=== PATIENT | female | born 1980 | race Caucasian/White ===

== ENCOUNTER 2017-07-31 18:04 | Outpatient (CLI) | payer BC, OTHER ==
[2017-07-31 18:53] LABS: URINE BLOOD (Dip) POC 2+ (NEGATIVE)
[2017-07-31 19:31] LABS: ADD UMIC YES; UR ASCORBIC ACID NEGATIVE (NEGATIVE); UR BACTERIA FEW /HPF (NONE SEEN); UR BILIRUBIN (Dip) NEGATIVE (NEGATIVE); UR BLOOD (Dip) 2+ mg/dL (NEGATIVE); UR CLARITY CLEAR (CLEAR); UR COLOR STRAW (YELLOW); UR GLUCOSE (Dip) NEGATIVE (NEGATIVE); UR KETONES (Dip) NEGATIVE (NEGATIVE); UR LEUKOCYTE ESTERASE (Dip) 1+ Leu/ul (NEGATIVE); UR NITRITE (Dip) NEGATIVE (NEGATIVE); UR RBC 3 /HPF (0-5); UR SPECIFIC GRAVITY (Dip) 1.003 (1.003-1.030); UR SQUAMOUS EPITHELIAL CELL FEW /HPF (FEW); UR TOTAL PROTEIN (Dip) NEGATIVE (NEGATIVE); UR UROBILINOGEN (Dip) NEGATIVE (NEGATIVE)
--- NOTE | 2017-07-31 20:29 | RADRPT ---
PROCEDURE: Obstetrical ultrasound for biophysical profile CLINICAL INDICATION: Biophysical profile. . TECHNIQUE: Obstetrical ultrasound of the uterus for biophysical profile. Transabdominal and transvaginal views are obtained. COMPARISON: None FINDINGS: Single intrauterine gestation. Presentation: Cephalic. Placenta: Anterior. No evidence of placental abruption. No evidence of placenta previa. Cervix is closed measuring 1.8 cm as visualized transvaginally. breathing movement = 2/2 tone = 2/2 motion = 2/2 SAIRA = 2/2 SAIRA = 11.2 cm heart rate: 146 beats per minute IMPRESSION: Single intrauterine gestation. Biophysical profile 03/10 Cervix is closed measuring 1.8 cm as visualized transvaginally. RPTAT: AADD .Luis Noyola MD, Date Time Electronically viewed and signed by .Luis Noyola MD, on 07/31/2017 20:29 .B/
--- NOTE | 2017-07-31 20:51 | PN ---
Triage Information Date/Time Reason for visit: DFM Weeks of Gestation 34w 4d /Para Objective Heart Rate Comments reactive Contractions: 6-10 Minutes Apart Results/Medications Results 24 hrs Laboratory Tests Test 07/31/17 18:50 07/31/17 18:55 Urine Color STRAW Urine Clarity CLEAR Urine pH 7.0 Urine Specific [place] 1.003 Urine Ketones NEGATIVE Urine Nitrite NEGATIVE Urine Bilirubin NEGATIVE Urine Urobilinogen NEGATIVE Urine Leukocyte Esterase 1+ H Urine Microscopic RBC 3 Urine Microscopic WBC 9 H Urine Squamous Epithelial Cells FEW Urine Calcium Oxalate Crystals FEW A Urine Bacteria FEW A Urine Hemoglobin 2+ H Urine Glucose NEGATIVE Urine Total Protein NEGATIVE Bedside Urine pH (LAB) 6.0 Bedside Urine Protein (LAB) Negative Bedside Urine Glucose (UA) Negative Bedside Urine Ketones (LAB) Negative Bedside Urine Blood 2+ H Bedside Urine Nitrite (LAB) Negative Bedside Urine Leukocyte Esterase (L Trace H Imaging Results BPP 03/10, SAIRA 11.2cm Disposition: Discharge Assessment/Plan 37 y/o at 34w 4d with dfm -BPP normal, NST reactive -UCs are asymptomatic -discharge home with ptl precautions -f/u with OB, patient interested in FADUMO COYLE Jul 31, 2017 20:51
--- NOTE | 2017-07-31 21:34 | TRIAGE ---
OB Triage Datetime Report Generated by CPN: 07/31/2017 21:33 Datetime: 07/31/2017 20:40 Stage of : OB Triage Datetime: 07/31/2017 20:30 Stage of : OB Triage Labor Evaluation Frequency: 6-10 Monitor Mode: External Quality: Mild Pattern: Normal: <= 5 Contractions in 10 Minutes Resting Tone [employer]: Relaxed Contraction Comments: Pt denies ucs or discomfort. Heart Rate FHR Baseline Rate: 140 Monitor Mode: External US FHR Baseline Changes: No Baseline Change Variability: Moderate 6-25 bpm Accelerations: 15X15 Decelerations: None Category: Category I Datetime: 07/31/2017 19:51 Stage of : OB Triage Monitor Mode: External US Datetime: 07/31/2017 19:39 Stage of : OB Triage Monitor Mode: External Quality: Mild Pattern: Normal: <= 5 Contractions in 10 Minutes Resting Tone [employer]: Relaxed Contraction Comments: pt denies ucs or discomfort Heart Rate FHR Baseline Rate: 145 Monitor Mode: External US FHR Baseline Changes: No Baseline Change Pain Assessment Pain Scale: 0 Pain Presence: None/Denies Pain Type: N/A Datetime: 07/31/2017 18:44 Stage of : OB Triage Maternal Assessment Level of Consciousness: Fully Conscious DTR's/Clonus: DTRs 2+; No Clonus Headache: Denies Blurred Vision: No Respiratory Effort: Unlabored; Regular Rhythm; Equal Expansion Breath Sounds, Left: Clear and Equal Breath Sounds, Right: Clear and Equal Nausea/Vomiting: Denies RUQ Epigastric Pain: Denies Facial Edema: None Temperature Route: Axillary Fall Risk Assessment History of Falling: (0) No Secondary Diagnosis: (0) No Ambulatory Aid: (0) Bedrest/Nurse Assist IV Therapy: (0) No Gait: (0) Normal/Bedrest/Immobile Mental Status: (0) Oriented to Own Ability Fall Score: 0 Fall Risk Score Definition: No Risk: No action required Labor Evaluation Frequency: 9-10 Monitor Mode: External Duration (sec)2399: 50-70 Quality: Mild Pattern: Normal: <= 5 Contractions in 10 Minutes Intensity IUP (mmHg): 50-60 Resting Tone [employer]: Relaxed Heart Rate FHR Baseline Rate: UNABLE TO DETERMINE Monitor Mode: External US Variability: Moderate 6-25 bpm Accelerations: 10X10 Decelerations: None Pain Assessment Pain Scale: 5 Pain Presence: None/Denies Pain Type: Cramping Pain Location: Perineum Pain Goal: 3 Pain Relief Measures: Comfort Measures Datetime: 07/31/2017 18:40 EGA: 34.4 Datetime: 07/31/2017 18:36 Time of Arrival: 07/31/2017 18:00 Arrived By: Ambulatory Arrived From: Office Chief Complaint: REFERRED FROM OFFICE FOR WELL BEING, CONCERNED FROM LAST WHEN SHE HAD PROBLEMS, WANT TO BE SURE THE BABY IS OK. DENIES LEAKING, BLEEDING OR UC'S Movement: Decreased Contractions: Denies/Absent Rupture of Membranes: Denies Vaginal Bleeding: None Vaginal Discharge: Denies Recent Sexual Intercouse: Denies Abdominal Trauma: Not Applicable Patient Complaints: None Time Provider Notified: 07/31/2017 18:16 Provider Notified: Dr Kim Initial Plan: MONITOR, BPP/NST, CL Datetime: 07/31/2017 18:16 Stage of : OB Triage
== END 2017-07-31 20:50 | disposition home or self-care (01) ==
LOC: OBT 18:04 → L-D 18:06 → OBT 20:50
PROVIDERS: ATTEND Obstetrics & Gynecology
DX: O36.8130 Decreased fetal movements, third trimester, not applicable or unspecified (principal); O09.523 Supervision of elderly multigravida, third trimester; Z3A.34 34 weeks gestation of pregnancy
CPT/HCPCS: 76817; 76818; 81001; 81003

== ENCOUNTER 2017-08-04 15:38 | Outpatient (CLI) | END 2017-08-04 17:35 | disposition home or self-care (01) ==

== ENCOUNTER 2017-08-07 14:24 | Outpatient (CLI) | END 2017-08-07 16:22 | disposition home or self-care (01) ==

== ENCOUNTER 2017-08-09 13:32 | Outpatient (CLI) | END 2017-08-09 16:20 | disposition home or self-care (01) ==

== ENCOUNTER 2017-08-12 13:43 | Outpatient (CLI) | END 2017-08-12 16:50 | disposition home or self-care (01) ==

== ENCOUNTER 2017-08-21 19:00 | Inpatient (IN) | END 2017-08-22 10:30 | disposition home or self-care (01) | DRG 782 ==

== ENCOUNTER 2017-08-23 10:10 | Outpatient (CLI) | END 2017-08-23 13:40 | disposition home or self-care (01) ==

== ENCOUNTER 2017-08-24 09:48 | Outpatient (CLI) | END 2017-08-24 11:58 | disposition home or self-care (01) ==

== ENCOUNTER 2019-01-01 20:30 | Emergency (ER) | payer BC ==
[~2019-01-01] VITALS: Ht 154.9 cm; Wt 65.7 kg
[~2019-01-01 20:30] MED LIST: ASPI-817 PO; FERR325T5 PO; PREN-93 PO
[2019-01-01 20:35] VITALS: BP 128/76; PULSE 74; RESP 18; Ht 154.9 cm; Wt 65.7 kg
--- NOTE | 2019-01-01 22:51 | ERD ---
ER Documentation Chief Complaint Chief Complaint left thumb laceration while cooking, cutting vegetable around 1230pm HPI Patient is a 38 years old female with no known past medical history presenting to the clinic for left thumb abrasion with bleeding. Patient reports accidentally cutting her skin of all she was cutting vegetables at 12:30 PM. Patient admits to going to an urgent care had dressing applied with uterine nerve block and was discharged with Benadryl, ibuprofen, a second pain medication, and tetanus vaccination. Patient states that her finger started bleeding when she came home came to the ER to stop the bleeding. ROS All systems reviewed and are negative except as per history of present illness. Medications Home Meds Reported Medications Aspirin* (Aspirin* EC) 81 Mg Tablet.dr, 81 MG PO DAILY, TAB 08/04/17 Ferrous Sulfate (Ferrous Sulfate) 325 Mg Tablet.dr, 325 MG PO DAILY 08/04/17 Vit No.124/Iron/FA ( Vitamin Tablet) 1 Each Tablet, 1 EACH PO DAILY, TAB 08/04/17 Allergies Allergies: Coded Allergies: No Known Allergies (Verified Allergy, Unknown, 08/07/17) PMhx/Soc Medical and Surgical Hx: pt denies Medical Hx, pt denies Surgical Hx History of Surgery: No Anesthesia Reaction: No Hx Neurological Disorder: No Hx Respiratory Disorders: No Hx Cardiac Disorders: No Hx Psychiatric Problems: No Hx Miscellaneous Medical Probl: No Hx Alcohol Use: No Hx Substance Use: No Hx Tobacco Use: No Smoking Status: Never smoker FmHx Family History: No diabetes, No coronary disease, No other Physical Exam Vitals Vital Signs Date Temp Pulse Resp B/P (MAP) Pulse Ox O2 O2 Flow FiO2 Time Delivery Rate 01/01/19 98.0 74 18 128/76 100 20:35 (93) Physical Exam Const: No acute distress Head: Atraumatic Eyes: Normal Conjunctiva Neur: Awake and alert Psych: Normal Mood and Affect Left Thumb Exam: Skin abrasion on distal end with active bleeding that is tender to touch. No obvious signs of infection. Results 24 hrs Current Medications Medications Dose Sig/Sheridan Start Time Status Last (Trade) Ordered Route PRN Stop Time Admin Dose Reason Admin Lidocaine 20 ml ONCE ONCE 01/01/19 DC (Xylocaine SC 23:00 01/01/19 1% (Mdv) 20 23:01 ml) Bacitracin 1 applic ONCE ONCE 01/01/19 DC (Bacitracin TOP 23:00 01/01/19 0.5%/ Zinc 23:01 Oint) Procedures/MDM Skin abrasion cannot be repaired. Wound care was initiated followed by dressing application Surgicel (Patient denied digital block with lidocaine). Patient tolerated the procedure well. Patient was advised to avoid usage of left thumb X 5 days. Patient is stable and ready for discharge. No medication prescribed as patient was instructed to take Ibuprofen at home. Departure Diagnosis: Primary Impression: Laceration Condition: Stable Patient Instructions: Abrasion, Laceration, Hand Referrals: [facility] Additional Instructions: Patient advised to return to the ED immediately for new or worsening symptoms. Patient advised to follow up with primary care provider in the next 24-48 hours. Patient verbalized understanding and agrees with treatment plan and course of action. If patient has no primary care they may follow up with [facility] [address] [place] [id number] or [facility] [address] [place] [address] [address] [address] ELSA GIBSON PA-C Jan 01, 2019 22:51
[2019-01-01] MEDS ORDERED: BACITRACIN 0.5%/ZINC 28.35 GM OINT TOP ONE (23:00)
[2019-01-01] MEDS ORDERED: LIDOCAINE 1% (MDV) 20 ML INJ SC ONE (23:00)
== END 2019-01-01 23:43 | disposition home or self-care (01) ==
LOC: FTE 20:30
DX: S61.012A Laceration without foreign body of left thumb without damage to nail, initial encounter (principal); W26.8XXA Contact with other sharp object(s), not elsewhere classified, initial encounter; Y92.9 Unspecified place or not applicable; Z79.82 Long term (current) use of aspirin
CPT/HCPCS: Z7610 ×2; 99283

== ENCOUNTER 2019-02-17 09:50 | Day surgery (SDC) | payer BC ==
[~2019-02-17] VITALS: Ht 152.4 cm; Wt 64.7 kg
[2019-02-17] VITALS (22 sets, daily range): BP systolic 80–121; BP diastolic 44–77; PULSE 72–104; RESP 13–23; Ht 152.4 cm; Wt 64.7 kg
--- NOTE | 2019-02-17 06:08 | HPN ---
Date/Time of Note Date/Time of Note DATE: 02/17/19 TIME: 06:08 Interval H&P Admission Note Pt. seen H&P reviewed: No system changes MANOJ CARBONE MD Feb 17, 2019 06:08
--- NOTE | 2019-02-17 06:11 | OPR ---
Date/Time of Note Date/Time of Note DATE: 02/17/19 TIME: 06:08 Operative Report Procedure Date: Feb 17, 2019 Preoperative Diagnosis Right knee lateral meniscus tear Postoperative Diagnosis 1. Right knee lateral meniscus tear 2. Right knee synovial plica (medial) Operation/Procedure Performed 1. Right knee arthroscopy with debridement of lateral meniscus tear 2. Right knee arthroscopic excision of medial synovial plica Surgeon see signature line Aircraft Power Plant Assembler Deion Burnett MD Second Aircraft Power Plant Assembler: CAIT XAVIER PA-C Anesthesia Type: general Estimated Blood Loss: minimal Transfusion none Specimen none Grafts/Implants none Complications none Pt Condition Post Procedure: critical Disposition: PACU Procedure Description JACKSCREW MAN SURGEON: Deion Burnett MD was asked to be present at my request as a result of the complexity associated with this procedure including positioning the extremity and manipulation of the arthroscope as a surgeon and inserting instrumentation. In my opinion the assistance offered by surgical scrub technologist is insufficient and Dr. Burnett should be compensated for his time. PROCEDURE IN DETAIL: Following the administration of general endotracheal anesthesia supplemented with a a local anesthetic, the patient was placed in the supine position. The right lower extremity was examined under anesthesia. Range of motion at this point was from full extension to approximately 100 degrees of flexion. There was a mild effusion. There was moderate lateral crepitus. Further examination of the ligamentous structures revealed no significant Angelito's and no evident posterior or lateral instability. Sterile prep and drape was then undertaken of the left lower extremity. Anterior portals were made and diagnostic arthroscopy was undertaken. The patella had normal tracking as well as normal articular cartilage. There were no evident chondral articular injuries in the patella or the intercondylar notch. The medial gutter was then investigated. There is a very thickened medial plica which was 4 to 5 mm in thickness with a severe reactive area along the medial aspect of the medial femoral condyle consistent with grade II chondromalacia. The shaver and the ablator were then inserted in an excision of the medial synovial plica was then undertaken and stable tissue. The medial joint space was then entered the medial structures including the articular cartilage on the meniscus were probed and visualized and no abnormalities were noted. The lateral joint space was then entered and the lateral articular cartilage revealed no abnormalities. There was a diffuse tear which perhaps was either a partial discoid lateral meniscus or perhaps remnants of a bucket-handle tear. In any event, the area was then excised there was no vascularity to the remaining tissue. Approximately 50% of the lateral meniscus was removed using a combination of the shaver and cutting instruments. A stable interface was obtained throughout. In the end, the most lateral portion of the meniscus was nearly deficient. The central notch was then identified. The PCL was normal. The ACL had what appeared to be perhaps a partial tear of the posterior band of the ACL. As mentioned above, there was no significant instability on clinical exam. The bulk of the ACL was intact. The small stump was debrided of the posterior band. The joint was irrigated thoroughly. The wounds were covered with Steri-Strips. A sterile dressing was used for the final cover. Estimated blood loss was procedure was minimal. The patient was awakened and transported to recovery room in a stable condition. MANOJ CARBONE MD Feb 17, 2019 06:11
[~2019-02-17 09:50] MED LIST changes: +BUPIVACAINE 0.5% IRR SCH; +CEFAZOLIN 2 GM/50 ML (PMX) 50 ML IVPB SCH; +DEXAMETHASONE 2 MG TAB PO SCH; +GABAPENTIN 300 MG CAP PO SCH; +KETOROLAC IRR SCH; +LACTATED RINGER'S 1,000 ML IV SCH; +MORPHINE SULFATE IRR SCH; +[UNRECOGNIZED DRUG - OTHER] IRR SCH
[2019-02-17] MEDS ORDERED: BUPIVACAINE 0.5%/EPI (SDV) 30 ML INJ ONE (12:49)
--- NOTE | 2019-02-17 12:54 | PREAC ---
Date/Time of Note Date/Time of Note DATE: 02/17/19 TIME: 12:53 Anesthesia Eval and Record Evaluation Time Pre-Procedure Interview DATE: 02/17/19 TIME: 12:53 Age 38 Sex female NPO: 8 hrs Preoperative diagnosis right knee lateral meniscus tear Planned procedure right knee arthroscopy, repair of lateral meniscus tear Past Medical History Past Medical History: None Surgery & Anesthesia Issues No known issue Meds Anticoagulation: No Beta Irma within 24 hr: No Reason Beta Irma not given: Pt. not on B-Irma Discontinued Reported Medications Aspirin* (Aspirin* EC) 81 Mg Tablet.dr, 81 MG PO DAILY, TAB 08/04/17 Ferrous Sulfate (Ferrous Sulfate) 325 Mg Tablet.dr, 325 MG PO DAILY 08/04/17 Vit No.124/Iron/FA ( Vitamin Tablet) 1 Each Tablet, 1 EACH PO DAILY, TAB 08/04/17 Current Medications Cefazolin Sodium/ Dextrose 50 ml @ 100 mls/hr PRE-OP IVPB ; Start 02/17/19 at 06:00; Stop 02/17/19 at 19:00 Bupivacaine HCl/ Morphine Sulfate/ Ketorolac Tromethamine/ Clonidine/Sodium Ch loride/ Vancomycin HCl INTRA-OP IRR ; Start 02/17/19 at 06:00 Gabapentin (Neurontin) 300 mg ONCE PO Last administered on 02/17/19at 11:23; Admin Dose 300 MG; Start 02/17/19 at 06:00; Stop 02/17/19 at 16:00 Dexamethasone (Decadron) 2 mg ONCE PO Last administered on 02/17/19at 11:23; Admin Dose 2 MG; Start 02/17/19 at 06:00; Stop 02/17/19 at 16:00 Lactated Ringer's 1,000 ml @ 20 mls/hr Q24H IV Last administered on 02/17/19at 11:23; Admin Dose 20 MLS/HR; Start 02/17/19 at 06:00; Stop 02/19/19 at 07:59 Meds reviewed: Yes Allergies Coded Allergies: No Known Allergies (Verified Allergy, Unknown, 02/17/19) Allergies Reviewed: Yes Labs/Studies Labs Reviewed: Reviewed by anesthesiologist test: Negative Studies: CXR Pre-procedure Exam Last vitals Vital Signs Date Temp Pulse Resp B/P (MAP) Pulse Ox O2 O2 Flow FiO2 Time Delivery Rate 02/17/19 98.0 76 16 107/64 100 11:57 (78) Airway: Adequate mouth opening, Adequate thyromental dist Mallampati: Mallampati II Teeth: Normal Lung: Normal Heart: Normal ASA Physical Status ASA physical status: 1 Emergency: None Planned Anesthetic General/MAC: LMA Planned Pain Management Parenteral pain med, Local by surgeon Pre-operative Attestations Prior to commencing anesthesia and surgery, the patient was re-evaluated, there was verification of: *The patient's identity *The results of appropriate recent lab work and preoperative vital signs *The above evaluation not changing prior to induction *Anesthetic plan, risk benefits, alternative and complications discussed with patient/family; questions answered; patient/family understands, accepts and wishes to proceed. JOHNATHAN DICKINSON MD Feb 17, 2019 12:54
[2019-02-17] MEDS ORDERED: MIDAZOLAM 1 MG/ML 2 ML INJ ONE (12:57)
[2019-02-17] MEDS ORDERED: LIDOCAINE 2% (SDV) 5 ML INJ ONE (12:57)
[2019-02-17] MEDS ORDERED: CEFAZOLIN 1 GM INJ ONE (12:57)
[2019-02-17] MEDS ORDERED: FENTAnyl 50 MCG/ML VIAL ONE (12:57)
[2019-02-17] MEDS ORDERED: PROPOFOL 20 ML ONE (12:57)
[2019-02-17] MEDS ORDERED: DEXAMETHASONE 4 MG/ML 5 ML INJ ONE (13:10)
[2019-02-17] MEDS ORDERED: ONDANSETRON 4 MG INJ ONE ×2 (13:10→15:08)
--- NOTE | 2019-02-17 13:33 | PDOCDIS ---
Discharge Instructions DIAGNOSIS Discharge Diagnosis Lateral meniscus tear CONDITION [id number] Patient Condition: [id number] Good HOME CARE INSTRUCTIONS: [id number] Diet Instructions: [id number] Regular ACTIVITY: [id number] Activity Restrictions: [id number] Slowly Increase Activity Keep Limb Elevated [id number] Bathing Restrictions: [id number] Shower (May shower today. Do not submerge incisions) FOLLOW UP/APPOINTMENTS Follow-up Plan 2 weeks in the office SCHOOL/WORK RELEASE May return to School/Work with: With Restrictions School/Work Release Comment: Crutches as necessary MANOJ CARBONE MD Feb 17, 2019 13:33
--- NOTE | 2019-02-17 13:48 | PAC ---
Date/Time of Note Date/Time of Note DATE: 02/17/19 TIME: 13:47 Post-Anesthesia Notes Post-Anesthesia Note Last documented vital signs Vital Signs Date Temp Pulse Resp B/P (MAP) Pulse Ox O2 O2 Flow FiO2 Time Delivery Rate 02/17/19 98.0 76 16 107/64 100 11:57 (78) Activity: WNL Respiratory function: WNL Cardiovascular function: WNL Mental status: Baseline Pain reasonably controlled: Yes Hydration appropriate: Yes Nausea/Vomiting absent: Yes Comments BP: 102/60 HR: 87 RR: 15 T: 98 SaO2: 100% JOHNATHAN DICKINSON MD Feb 17, 2019 13:48
[2019-02-17] MEDS ORDERED: ONDANSETRON 4 MG INJ IV STA (15:09)
== END 2019-02-17 17:05 | disposition home or self-care (01) ==
LOC: SDS 09:50
PROVIDERS: ATTEND Orthopaedic Surgery
DX: S83.281A Other tear of lateral meniscus, current injury, right knee, initial encounter (principal); M67.51 Plica syndrome, right knee
CPT/HCPCS: 29881; 93005; J0690; J0735; J1100; J1885; J2250; J2274; J2405; J3010; J3370; Z7610